=== PATIENT | female | born 1965 | race African-American/Black ===

== ENCOUNTER → 2017-10-04 | Outpatient (CLI) | payer BC ==
[~2017-10-04] MED LIST: ESTRACE0.5 MG PO; FLEXERIL 1010 MG/TAB PO; FLONASE NASAL S16 GM NS; HCTZ 25MG TAB25 MG PO; HUMALOG100 U/ML SQ; HUMULIN 70/3100 U/ML SC; LANTUS100 U/ML SQ; NEURONTIN300 MG/CAP PO; NORCO 325 MG-51 TAB PO; NORVASC 10MG10 MG PO; NOVOLOGMIX70/30 SQ; PERCOCET 325 MG1 TA2 PO; PRENATAL1 TA1 PO; ROBAXIN 50500 MG/TAB PO; ZANAFLEX 4MG TAB4 MG PO
== END ==
LOC: MC.RAD 15:00
DX: Z12.31 Encounter for screening mammogram for malignant neoplasm of breast (principal)

== ENCOUNTER 2019-01-07 11:58 | Observation (INO) | payer OTHER ==
[~2019-01-07] VITALS: Ht 172.7 cm; Wt 112.7 kg
[2019-01-07 12:34] LABS: BASO % 0.5 % (0.0-2.0); EOS # 0.1 (0.0-0.7); EOS % 1.4 % (0-4.0); GRAN % 48.9 % (42.2-75.2); HEMOGLOBIN 12.3 g/dl (12.5-16.0); LYMPH # 2.6 (1.2-3.4); LYMPH % 42.4 % (20.0-51.0); MEAN CELL VOLUME 81 fl (80.0-100.0); MEAN CORPUSCULAR HEMOGLOBIN 27 pg (27.0-31.0); MEAN CORPUSCULAR HGB CONC 33 g/dl (33.0-37.0); MEAN PLATELET VOLUME 9.3 fl (7.4-10.4); MONO # 0.4 (0.1-0.6); MONO % 6.6 % (1.7-9.3); PLATELET COUNT 296 K/mm3 (130-400); RED BLOOD COUNT 4.55 M/mm3 (4.10-5.30); REDCELL DISTRIBUTION WIDTH-CV 13.2 % (11.5-14.5)
[2019-01-07 12:35] LABS: HEMATOCRIT 36.9 % (37.0-47.0)
[2019-01-07 12:39] LABS: PROTHROMBIN TIME 11.6 SECONDS (9.7-12.8)
[2019-01-07 12:47] LABS: ALANINE AMINOTRANSFERASE 24 U/L (9-52); ALBUMIN 4.3 gm/dL (3.5-5.0); ALKALINE PHOSPHATASE 105 U/L (50-136); ANION GAP 8 mmol/L (7-16); AST,SGOT 38 U/L (15-37); BILIRUBIN,TOTAL 0.3 mg/dL (0.0-1.0); BLOOD UREA NITROGEN 15 mg/dL (7-17); CALCIUM 9.7 mg/dL (8.4-10.2); CARBON DIOXIDE 30 mmol/L (22-30); CHLORIDE 101 mmol/L (98-107); CREATININE, serum 0.85 mg/dL (0.52-1.25); GLUCOSE 119 mg/dL (74-106); LIPASE 56 U/L (23-300); POTASSIUM 3.7 mmol/L (3.4-5.0); SODIUM 139 mmol/L (137-145); TOTAL PROTEIN 8.7 gm/dL (6.4-8.2)
[2019-01-07 13:02] LABS: TROPONIN-I < 0.012 ng/mL (0.000-0.035)
--- NOTE | 2019-01-07 14:23 | NUR ---
Arrived to the room at this time. Medications and pharmacy reviewed with the patient. Oriented to the room. Family is at the bedside. Requesting soda at this time.
[2019-01-07 15:42] LABS: CHOLESTEROL RISK RATIO 4.2
[2019-01-07 16:07] VITALS: BP 125/52; PULSE 62
--- NOTE | 2019-01-07 19:37 | NUR ---
No change throughout the afternoon. CT for PE rule out completed. The call light is in place. report given to ELIJAH Tineo to resume care.
[2019-01-07 20:18] VITALS: BP 118/52; PULSE 63; TEMP 98.3
[2019-01-07 23:54] VITALS: BP 115/56; PULSE 57; TEMP 98
[2019-01-08] VITALS (9 sets, daily range): BP systolic 121–149; BP diastolic 53–81; PULSE 60–103; TEMP 97.8–98
--- NOTE | 2019-01-08 04:13 | NUR ---
PT APPEARED TO HAVE SLEPT WELL THIS SHIFT. NO ISSUES OR CONSERNS VOICED. NO C/O CHEST PAIN OR NOTED SOB. PT NPO STATUS AT MIDNIGHT FOR UPCOMING PROCEDURES IN THE AM. PT INFORMED THIS NURSE ABOUT NPO AND STATUS AND WAS ABLE TO VOICE UNDERSTANDING.
--- NOTE | 2019-01-08 06:24 | NUR ---
PT HAD C/O HEADACHE THIS AM, ADMINISTERED PRN TYLENOL. STATED SHE HAD A HEADACHE SINCE YESTERDAY SOME TIME.
--- NOTE | 2019-01-08 07:15 | NUR ---
IVF's stopped and disconnected at this time to prepare pt for testing. No further needs reported. Call light in reach.
--- NOTE | 2019-01-08 08:00 | NUR ---
Assessment complete. Pt laying in bed, A&O x 4. Breath sounds CTAB. BS active x 4. Pt denies pain at this time, reports just a slight bit of pressure to left chest, does not rate on pain scale. Saline lock IV to left forearm without s/s of complications. POC reviewed with pt. No further needs reported. Call light in reach.
--- NOTE | 2019-01-08 08:26 | NUR ---
Pt to [facility] for testing via .
--- NOTE | 2019-01-08 10:00 | NUR ---
Pt back to room via WC following completion of test.
--- NOTE | 2019-01-08 16:18 | NUR ---
SW and SW Student met with patient to discuss discharge planning. Patient lives in [place] with her Ebenezer. her PCP is Dr Abbott and she obtains her medications from [facility] in . Patient did not have a dpoa in place but was agreeable to complete one. SW assisted patient in completing the DPOA and provided patient with copies and original and placed a copy on the chart. There are no anticipated discharge needs at this time.
--- NOTE | 2019-01-08 16:31 | NUR ---
Discharge instructions reviewed with pt regarding follow-up appointment and s/s to return. Pt verbalizes understanding, discharged home, ambulates out of facility accompanied by this nurse.
== END 2019-01-08 16:32 | disposition home or self-care (01) ==
LOC: COL.ER 11:58 → MEDICAL 13:43
PROVIDERS: Emergency Medicine; Physician Assistant; ADMIT Hospitalist
DX: R07.89 Other chest pain (principal); E11.9 Type 2 diabetes mellitus without complications; Z79.4 Long term (current) use of insulin; I10 Essential (primary) hypertension; Z86.718 Personal history of other venous thrombosis and embolism; Z79.899 Other long term (current) drug therapy; Z88.2 Allergy status to sulfonamides
CPT/HCPCS: A9500; G0378; J1650; J1815; J7030; Q9967

== ENCOUNTER → 2019-02-18 | Outpatient (CLI) | payer OTHER | LOC: MC.RAD 12:57 | DX: Z12.31 Encounter for screening mammogram for malignant neoplasm of breast (principal) ==

== ENCOUNTER 2021-01-17 18:48 | Emergency (ER) | payer OTHER ==
[~2021-01-17] VITALS: Ht 172.7 cm; Wt 111.4 kg
[2021-01-17 18:58] VITALS: TEMP 97.2
[2021-01-17 20:26] LABS: BASO % 0.4 % (0.0-2.0); EOS # 0.1 (0.0-0.7); GRAN # 2.5 (1.4-6.5); HEMOGLOBIN 11.7 g/dl (12.5-16.0); LYMPH # 1.9 (1.2-3.4); LYMPH % 39.5 % (20.0-51.0); MEAN CELL VOLUME 81 fl (80.0-100.0); MEAN CORPUSCULAR HEMOGLOBIN 27 pg (27.0-31.0); MEAN CORPUSCULAR HGB CONC 33 g/dl (33.0-37.0); MEAN PLATELET VOLUME 9.2 fl (7.4-10.4); MONO # 0.3 (0.1-0.6); MONO % 6.9 % (1.7-9.3); PLATELET COUNT 296 K/mm3 (130-400); RED BLOOD COUNT 4.38 M/mm3 (4.10-5.30); REDCELL DISTRIBUTION WIDTH-CV 13.6 % (11.5-14.5)
[2021-01-17 20:29] LABS: HEMATOCRIT 35.4 % (37.0-47.0)
[2021-01-17 20:42] LABS: ALANINE AMINOTRANSFERASE 24 U/L (4-34); ALBUMIN 4.1 gm/dL (3.5-5.0); ALKALINE PHOSPHATASE 104 U/L (50-136); ANION GAP 6 mmol/L (7-16); AST,SGOT 22 U/L (15-37); BILIRUBIN,TOTAL 0.4 mg/dL (0.0-1.0); BLOOD UREA NITROGEN 18 mg/dL (7-17); CALCIUM 9.7 mg/dL (8.4-10.2); CARBON DIOXIDE 28 mmol/L (22-30); CHLORIDE 102 mmol/L (98-107); CREATININE, serum 0.92 (0.52-1.25); GLUCOSE 186 mg/dL (74-106); POTASSIUM 3.7 mmol/L (3.4-5.0); SODIUM 136 mmol/L (137-145); TOTAL PROTEIN 8.4 gm/dL (6.4-8.2)
[2021-01-17 20:54] LABS: TROPONIN-I < 0.012 ng/mL (0.000-0.035)
[2021-01-17 21:12] LABS: COLLECTION METHOD CLEAN CATCH
[2021-01-17 21:20] LABS: MUCOUS Present /lpf; PH 7 (5-8); URINE APPEARANCE Hazy; URINE BACTERIA Rare /hpf; URINE BILIRUBIN Negative (NEGATIVE); URINE BLOOD Negative (NEGATIVE); URINE COLOR Yellow; URINE GLUCOSE Negative (NEGATIVE); URINE KETONE Negative (NEGATIVE); URINE LEUKOCYTE ESTERASE Negative (NEGATIVE); URINE NITRATE Negative (NEGATIVE); URINE PROTEIN(semi-quant) 1+ (NEGATIVE); URINE RBC 0-2 /hpf; URINE UROBILINOGEN Negative (NEGATIVE)
[2021-01-17 23:08] VITALS: BP 146/86; PULSE 67
== END 2021-01-17 23:08 | disposition home or self-care (01) ==
LOC: COL.ER 18:48
PROVIDERS: Nurse Practitioner Primary Care
DX: I10 Essential (primary) hypertension (principal); E11.9 Type 2 diabetes mellitus without complications; Z88.2 Allergy status to sulfonamides; Z79.4 Long term (current) use of insulin